=== PATIENT | male | born 2000 | race Two or more races ===

== ENCOUNTER 2021-11-14 23:31 | Emergency (ER) | payer OTHER ==
[2021-11-15 00:04] VITALS: BP 119/69; PULSE 84; TEMP 97.6; BMI 22.8
[2021-11-15] MEDS ORDERED: ACETAMINOPHEN 500 MG TABLET (FP) PO ONE (00:10)
[2021-11-15] MEDS ORDERED: LIDOCAINE 5% TOPICAL PATCH TP ONE (00:10)
[2021-11-15] MEDS ORDERED: ACETAMINOPHEN 325 MG TABLET (FP) ONE (00:13)
[2021-11-15] MEDS ORDERED: LIDOCAINE 5% TOPICAL PATCH ONE (00:13)
[2021-11-15] MEDS ORDERED: LIDOCAINE PATCH REMOVAL MC SCH (22:00)
== END 2021-11-15 04:57 | disposition home or self-care (01) ==
LOC: JER 23:31
DX: S16.1XXA Strain of muscle, fascia and tendon at neck level, initial encounter (principal); V49.50XA Passenger injured in collision with unspecified motor vehicles in traffic accident, initial encounter
CPT/HCPCS: 70450-TC; 72125-TC; 99284-25

== ENCOUNTER 2022-07-18 18:33 | Emergency (ER) | payer OTHER ==
[2022-07-18 18:46] VITALS: BP 119/52; PULSE 101; RESP 19; TEMP 98.1; BMI 23.6
[2022-07-18] MEDS ORDERED: KETOROLAC TROMETHAMINE 30 MG/1 ML VIAL IM ONE (19:12)
[2022-07-18] MEDS ORDERED: KETOROLAC TROMETHAMINE 30 MG/1 ML VIAL ONE (19:22)
== END 2022-07-18 20:29 | disposition home or self-care (01) ==
LOC: JERFT 18:33
PROC: 3E0233Z Introduction of Anti-inflammatory into Muscle, Percutaneous Approach (ICD-10-PCS; principal; 2022-07-18)
DX: M79.672 Pain in left foot (principal)
CPT/HCPCS: 73610-TC-LT-FY; 73630-TC-LT; 99284-25